=== PATIENT | female | born 1960 | race Asian ===

== ENCOUNTER → 2023-12-03 | Outpatient (CLI) | payer OTHER ==
[2023-12-04 08:06] LABS: MUMPS VIRUS IGG ANTIBODY 57.8 AU/mL (Immune >10.9); RUBELLA AB IGG-REFLAB 1.96 index (Immune >0.99); RUBEOLA (MEASLES) IGG >300.0 AU/mL (Immune >16.4); VARICELLA ZOSTER IGG AB TITER 2638 index (Immune >165)
== END | disposition home or self-care (01) ==
LOC: LABMN 13:58
PROVIDERS: ATTEND Internal Medicine
DX: Z02.1 Encounter for pre-employment examination (principal)
CPT/HCPCS: 86706; 86735; 86762; 86765; 86787